=== PATIENT | female | born 1975 | race Caucasian/White ===

== ENCOUNTER 2019-06-25 13:43 | Emergency (ER) | payer MEDICAID ==
[~2019-06-25] VITALS: Ht 152.4 cm; Wt 80.5 kg
[2019-06-25 13:49] VITALS: TEMP 98.4
[2019-06-25] MEDS ORDERED: TYLENOL 325MG325 MG PO (13:53)
[2019-06-25] MEDS ORDERED: FLEXERIL 1010 MG/TAB PO (16:26)
[2019-06-25] MEDS ORDERED: NORCO 325 MG-51 TAB PO (16:26)
[2019-06-25] MEDS ORDERED: ZESTORETIC 25 M1 TAB PO (17:34)
[2019-06-25 17:42] VITALS: BP 197/117; PULSE 98
== END 2019-06-25 17:43 | disposition home or self-care (01) ==
LOC: COL.ER 13:43
DX: M79.671 Pain in right foot (principal)

== ENCOUNTER → 2020-06-29 | Outpatient (CLI) | payer MEDICAID ==
[~2020-06-29] MED LIST: FLEXERIL 1010 MG/TAB PO; NORCO 325 MG-51 TAB PO; TYLENOL 325MG325 MG PO; ZESTORETIC 25 M1 TAB PO
== END ==
LOC: COL.RAD 09:16
DX: M79.661 Pain in right lower leg (principal); Z98.1 Arthrodesis status
CPT/HCPCS: A9503

== ENCOUNTER 2020-07-02 15:43 | Inpatient (IN) | payer MEDICAID ==
[~2020-07-02] VITALS: Ht 152.4 cm; Wt 102.6 kg
[2020-08-19] VITALS (11 sets, daily range): BP systolic 104–132; BP diastolic 55–72; PULSE 71–85; TEMP 97.6–98.2
--- NOTE | 2020-08-19 07:33 | NUR ---
VS ON ADMISSION WAS, [id number]% SCRUB COMPLETED TO RIGHT LEG TO THIGH. BISI HOSE TO THIGH APPLIED TO LEFT LEG PRE-OP. UNABLE TO START IV, ANESTHESIA TO START IV IN PACU.
[2020-08-19] MEDS ORDERED: ONE-A-DAY ESSE1 EACH PO (07:38)
[2020-08-19] MEDS ORDERED: CELEXA10 MG PO (07:39)
[2020-08-19] MEDS ORDERED: NEXIUM 24HR20 M1 PO (07:40)
[2020-08-19] MEDS ORDERED: KLONOPIN2 MG PO (07:41)
[2020-08-19] MEDS ORDERED: CYANOCOBAL1000 MCG/1 IM (07:44)
[2020-08-19] MEDS ORDERED: WELLBUTRIN 100100 MG PO (07:45)
[2020-08-19] MEDS ORDERED: PRINZIDE 12.5 M1 TA1 PO (10:30)
[2020-08-19] MEDS ORDERED: WELLBUTRIN SR100 M1 PO (11:26)
[2020-08-19] MEDS ORDERED: PRILOSEC 20MG20 MG PO (11:27)
--- NOTE | 2020-08-19 11:29 | NUR ---
PT TO ROOM 348 PER BED WITH REPORT FROM JULISSA BOX PACU @5702. PT A/O X3. LUNGS COARSE ALL OQUENDO. ENCOURAGED CDB. DRESSING TO LLE CDI WITH OCCLUSIVE BALA WRAP OVER STUMP. HEMOVAC DRAIN INPLACE WITH MINIMAL DRAINAGE.
--- NOTE | 2020-08-19 11:32 | NUR ---
IV TO PUMP. SCD ON NON OPERATIVE SIDE. PT TAKING PO WELL.
--- NOTE | 2020-08-19 17:50 | NUR ---
PT HAS BEEN UP TO VOID AND RETURNED TO BED. WITH MINIMAL ASSIST.
--- NOTE | 2020-08-19 21:57 | NUR ---
RESUMED CARE FROM CHARU SILVEIRA. PATIENT COMPLAINING OF SPASMS IN HER LEG AND REQUESTED HER IV SITE BE MOVED. CALLED DR JOLLY. ORDERS FOR IV BENADRYL, FLEXERIL, AND DC FLUIDS. PATIENT UP IN WHEELCHAIR. PATIENT HAS NO OTHER NEEDS AT THIS TIME.
--- NOTE | 2020-08-20 01:00 | NUR ---
Patient's IV came out. Called [facility] to put in a new one. Said she will put one in this morning.
[2020-08-20 04:31] VITALS: BP 126/84; PULSE 73; TEMP 98.1
--- NOTE | 2020-08-20 06:19 | NUR ---
New IV placed in the right forearm.
[2020-08-20 07:55] LABS: HEMOGLOBIN 13.7 g/dl (12.5-16.0); MEAN CELL VOLUME 91 fl (80.0-100.0); MEAN CORPUSCULAR HEMOGLOBIN 30 pg (27.0-31.0); MEAN CORPUSCULAR HGB CONC 33 g/dl (33.0-37.0); MEAN PLATELET VOLUME 10.4 fl (7.4-10.4); PLATELET COUNT 346 K/mm3 (130-400); RED BLOOD COUNT 4.53 M/mm3 (4.10-5.30); REDCELL DISTRIBUTION WIDTH-CV 13.6 % (11.5-14.5)
[2020-08-20 08:00] VITALS: BP 135/57; PULSE 87; TEMP 97.8
[2020-08-20 11:15] VITALS: BP 127/71; PULSE 91; TEMP 97.8
--- NOTE | 2020-08-20 11:45 | NUR ---
SUMA met with the patient to discuss discharge plan. The patient lives in [place] with a roommate, Christine. She reports needing some assistance with ADLs prior to hospitalization and has crutches, a knee scooter, and a walker. She states that her crutches are broken and the walker she has is too big for her. The patient states that she has two personal care attendants from [address] [place] [address]. She will be getting a third one soon. Christine and Christine's daughter are her personal care attendants. They help her with bathing, dressing, and whatever she may need. The patient also has a certified service dog, Maura. Maura is a lab/dachshund mix. The patient states that she has Maura for her anxiety and panic attacks. The patient's PCP is Dr. Kenisha Cook and she receives her medications from [facility]. The patient does not have a DPOA-HC, but she was interested in completing one. SUMA provided the form. The patient designated her daughter, Amanda Soto (ph#[phone]). SUMA and EMERGENCY MEDICINE MEDICAL DIRECTORJefferson, witnessed the patient's signature. The patient was provided with the original and some copies. SUMA placed a copy in the patient's chart. Amanda lives in [place], [place]. The patient had a BKA yesterday. SUMA discussed post-acute rehab and the options. The patient has Medicaid [facility]. The patient is interested in rehab, but would like for her service dog to come with her to the rehab. SUMA informed the patient that with COVID-19, that this would most likely not be possible. The patient verbalized understanding. The patient would still like for SUMA to ask the facilities if they would take a service animal, if not, she is still okay going to rehab without Maura. The patient states that a friend is watching Maura now. SUMA also informed patient that due to her insurance, SUMA would need to send multiple referrals. The patient was agreeable to this. SUMA consulted IPR Director, Aliza. SUMA attempted to contact Angella at [facility] to give her the referral. SUMA left her message. SUMA contacted and faxed a referral to [facility] and [facility]. Awaiting screens.
--- NOTE | 2020-08-20 13:47 | NUR ---
Ira, at [facility], reports that due to their bed situation and the patient's insurance, they would not have a bed available until sometime next week. Ira reports that the patient is already functioning quite well and she believes by the time they did have a bed, the patient would be too functional. Morgan, at [facility], reports that they have financially declined the patient.
--- NOTE | 2020-08-20 15:29 | NUR ---
SUMA observed the patient walking 300 feet on crutches with supervision from PT. SUMA then staffed with Josephine from PT. PT is now recommending home with outpatient therapy and would still recommend a wheelchair with elevating leg rests. SUMA met with the patient to update and to discuss going home with outpatient therapy. The patient states that her manager personal, Christine, that she is living with did not put her on her lease. She states that she has to be out of Christine's house in two weeks. She states that she did sign a lease and will have a new apartment that is handicap accessible on 09/14/2020. She states she does not know where she will stay or do until then. She was hopeful to be in rehab until 09/14. SUMA informed her of the possiblity of insurance denying a stay at rehab, due to her being too functional. SUMA discussed the [facility]. The patient reports that she does not like homeless shelters and would not want to go there. The patient states that she will return back home with her roommate, but would like to get a wheelchair and was open to SW sending the script to any [employer] company. SUMA discussed outpatient therapy. The patient states that she lives on the [facility] and was agreeable to getting outpatient therapy at [facility]. SUMA to schedule appointments. SUMA updated the patient's RN and informed her of how the patient's attending will need to sign a script for the wheelchair. SUMA placed the script on the patient's chart. SUMA contacted and faxed the patient's information to Charley at [facility]. SUMA notified her of what the patient will need and how we are awaiting the script.
[2020-08-20 16:18] VITALS: BP 128/63; PULSE 93; TEMP 98
--- NOTE | 2020-08-20 19:00 | NUR ---
PATIENT PROVIDED WITH PRN PAIN AND MUSCLE SPASM MEDICATION DURING THE DAY. PATIENT EDUCATED ON BEING MORE DESCRIPTIVE WITH HER PAIN SO THAT STAFF CAN APPROPRIATELY MEDICATE THE PAIN AND OR SPASMS. PATIENT BKA DRESSING REMAINED CD&I. BKA ELEVATED ON PILLOWS WITH ICE PACK IN PLACE OFF AND ON DURING THE SHIFT. PATIENT UP INDEPENDENTLY IN THE ROOM WITH CRUTCHES. BEDSIDE REPORT GIVEN TO CHARU POLANCO.
[2020-08-20 20:16] VITALS: BP 116/74; PULSE 94; TEMP 97.8
[2020-08-20 23:54] VITALS: BP 121/75; PULSE 91; TEMP 97.9
[2020-08-21 03:16] VITALS: BP 120/69; PULSE 88; TEMP 97.8
--- NOTE | 2020-08-21 04:16 | NUR ---
ALTERNATING NORCO AND OXYCODONE PRN FOR PAIN. FLEXERIL AND KLONIPINE GIVEN BEFORE BEDTIME. PATIENT CONTINUES TO REQUEST MORE PAIN MEDICINE BEFORE SHE IS ABLE TO HAVE MORE. ENSURING LOWER RIGHT EXTREMITY IS ELEVATED WHEN CHECKING ON HER. PATIENT HAS HER HEATED BLANKET AND ICE FOR COMFORT MEASURES TO HELP WITH PAIN.
--- NOTE | 2020-08-21 06:40 | NUR ---
PATIENT HAS BEEN AMBULATING IN ROOM INDEPENDENTLY. PATIENT CALLED AND REPORTED THAT SHE HAD FALLEN WHEN TRYING TO GET BACK INTO BED. WHEN ENTERING THE ROOM PATIENT WAS SITTING ON THE FLOOR NEXT TO THE BED. GAIT BELT WAS USED TO GET PATIENT BACK IN BED WITH THE HELP OF ANOTHER NURSE. NO INJURIES NOTED. AND ELECTRICAL HIGH TENSION TESTER WERE NOTIFIED.
[2020-08-21 07:07] VITALS: BP 115/72; PULSE 95; TEMP 98.6
--- NOTE | 2020-08-21 08:10 | NUR ---
Patient in bed resting. Alert and oriented x 3. Patient states she continues having pain to RLE. Medications given per orders. Dressing to RLE is CDI. Marcelo hose to LLE. Denies further needs at this time.
--- NOTE | 2020-08-21 09:30 | NUR ---
Patient called out to nurses station states she continues having pain to RLE 8/10. Medications given per orders.
--- NOTE | 2020-08-21 10:48 | NUR ---
Initial visit; Patient thanked Histology Assistant for offering God's blessings and for keeping her in Histology Assistant's prayers.
--- NOTE | 2020-08-21 11:22 | NUR ---
Geraldine, at [facility], reports that they are not able to take any new patient's until next Monday/Monday. Aliza, IPR Director, reports that she will decline the patient, due to being too functional and a bed is not available right now.
[2020-08-21 11:45] VITALS: BP 139/94; PULSE 110; TEMP 97.4
--- NOTE | 2020-08-21 12:45 | NUR ---
Angella, at [facility], reports that they have declined the patient due to being too functional.
--- NOTE | 2020-08-21 13:38 | NUR ---
SW contacted [facility] and secured the patient an outpatient OT appointment on , 08/27, at 1100 and PT on Monday, 08/28, at 1015. SW to inform the recovery unit operator of the appointments.
--- NOTE | 2020-08-21 14:18 | NUR ---
The patient's attending has not been up to the hospital yet today to round on the patient and sign script. SUMA contacted Charley at [facility] to follow up about the wheelchair and update on the script. Charley reports that they will try and deliver the wheelchair to the patient's room today.
--- NOTE | 2020-08-21 15:28 | NUR ---
SUMA contacted and updated the patient's attending on the patient's plan. The patient's attending plans to come up and sign the wheelchair script today. Charley, at [facility], reports that they will deliver the wheelchair to the patient's room today.
[2020-08-21 15:34] VITALS: BP 126/78; PULSE 111; TEMP 98.3
--- NOTE | 2020-08-21 16:08 | NUR ---
BAILEE delivered the wheelchair to the patient's room. SW met with the patient to review d/c plan. She is agreeable to the plan of returning home with outpatient therapy.
--- NOTE | 2020-08-21 18:48 | NUR ---
Patient has done well throughout the day. Complains of pain to RLE 8/10 throughout the day, medications given per orders. Patient ambulated with SBA and crutches through the day. Has been up in wheelchair throughout the day. Will report off to bilingual research interviewer.
--- NOTE | 2020-08-21 19:15 | NUR ---
Pt snoring in bed. Report received from day shift nurse stating that patient had fallen earlier today but continues to be independent in room with crutches and will get herself in wheelchair and go out in hallway pushing herself. Has been requesting pain med every 1-1 1/2 hours and is aware med can only be given every 2 hours alternately between Roxicodone and [place].
[2020-08-21 19:30] VITALS: BP 135/60; PULSE 96; TEMP 98
--- NOTE | 2020-08-21 19:30 | NUR ---
Pt. called and stated, "Can someone get me off the floor?". This nurse entered the room to find the pt. by the sink sitting cross legged on the floor in front of the wheel chair. Vitals stable. Pt. assessed for injury, non noted. Pt. was able to scoot over to the bedside and get on lt. knee, from this position with the gait belt and 3 assist we were able to get pt. up into the bed. Pt. denies any pain. Will notify hous lamp shades supervisor and On-call provider.
--- NOTE | 2020-08-21 20:15 | NUR ---
PT REQUESTED AND GIVEN NORCO 7.5/325 1 TAB AND FLEXERIL FOR RIGHT AMPUTEE PAIN RATED 10/10. RLE UP ON 2 PILLOWS AND 1 PILLOW TAKEN OUT AND LEFT WITH ONE. SCD PLACED ON LEFT LE. INT IN R FA FLUSHED AND IS LEAKING AT INSERTION SITE. SLIGHTLY RED AT SITE. BED ALARM APPLIED AFTER PT HAD SLID OUT OF WHEELCHAIR. CALL LIGHT WITHIN REACH.
[2020-08-21 23:45] VITALS: BP 107/78; PULSE 92; TEMP 98
[2020-08-22 03:50] VITALS: BP 130/82; PULSE 92; TEMP 97.9
--- NOTE | 2020-08-22 07:21 | NUR ---
PT SLEPT FOR A LONGER STRETCH AFTER RECEIVING HER KLONIPIN AND TRAMADOL. ICE TO RIGHT STUMP AND ELEVATED ON ONE PILLOW. BED ALARM ON ALL NIGHT. INT DC'D AFTER FLUSHING WAS LEAKING AND RED AT SITE. BANDAID APPLIED OVER SITE. ROXICODONE 10MG GIVEN AT 0541 THIS AM. BALA WRAP INTACT ON RIGHT STUMP. CALL LIGHT IN REACH.
[2020-08-22 07:23] VITALS: BP 118/70; PULSE 98; TEMP 98.1
[2020-08-22 11:43] VITALS: BP 145/83; PULSE 95; TEMP 97.6
[2020-08-22] MEDS ORDERED: FLEXERIL 1010 MG/TAB PO (11:56)
[2020-08-22] MEDS ORDERED: ASPI325T6 PO (11:57)
[2020-08-22] MEDS ORDERED: NORCO 325 MG-7.1 TAB PO (11:57)
[2020-08-22] MEDS ORDERED: ROXICODONE 55 MG/TAB PO (11:58)
[2020-08-22] MEDS ORDERED: NEURONTIN300 MG/CAP PO (11:58)
[2020-08-22] MEDS ORDERED: ZOFRAN 4MG T4 MG/TAB PO (12:00)
--- NOTE | 2020-08-22 13:10 | NUR ---
Patient has done well throughout the day. continues to complain of pain to right stump, medications given throughout the day per orders. Dr. Merino in to change dressing this afternoon. SS saw patient re changing wheelchair because she feels that wheelchair is too big for her; patient to call on monday. Discharge education provided to patient. Educated on dressing changes and follow up appointments. Patient educated on therapy appointments and when to call provider. Educated on all new medications and medication safety. Denies further needs at this time. Patient out by wheelchair.
--- NOTE | 2020-08-22 14:18 | NUR ---
SW was informed that patient stated that her wheelchair was too big. Patient stated that she called [employer] provided that is the specific size needed to assist with her needs. Patient states that she has company number if she has any further problems. Patient discharged. Nothing further
== END 2020-08-22 13:10 | disposition home or self-care (01) | DRG 475 ==
LOC: SURG 07-14 07:30 → INPTSU 08-19 05:05 → SURG 08-19 07:30
PROVIDERS: ADMIT Orthopaedic Surgery
PROC: 0Y6H0Z1 Detachment at Right Lower Leg, High, Open Approach (ICD-10-PCS; principal; 2020-08-19 07:30)
DX: M96.0 Pseudarthrosis after fusion or arthrodesis (principal); T84.038A Mechanical loosening of other internal prosthetic joint, initial encounter; Q79.8 Other congenital malformations of musculoskeletal system; M19.90 Unspecified osteoarthritis, unspecified site; F32.9 Major depressive disorder, single episode, unspecified; K21.9 Gastro-esophageal reflux disease without esophagitis
CPT/HCPCS: J0690; J1200; J2250; J2704; J3010; J7120

== ENCOUNTER 2020-09-20 19:42 | Emergency (ER) | payer MEDICAID ==
[~2020-09-20] VITALS: Ht 152.4 cm; Wt 95.9 kg
[~2020-09-20 19:42] MED LIST changes: +ASPI325T6 PO; +CELEXA10 MG PO; +CYANOCOBAL1000 MCG/1 IM; +KLONOPIN2 MG PO; +NEURONTIN300 MG/CAP PO; +NEXIUM 24HR20 M1 PO; +NORCO 325 MG-7.1 TAB PO; +ONE-A-DAY ESSE1 EACH PO; +PRILOSEC 20MG20 MG PO; +PRINZIDE 12.5 M1 TA1 PO; +ROXICODONE 55 MG/TAB PO; +WELLBUTRIN 100100 MG PO; +WELLBUTRIN SR100 M1 PO; +ZOFRAN 4MG T4 MG/TAB PO
[2020-09-20 19:43] VITALS: TEMP 98.5
[2020-09-20 21:01] VITALS: BP 100/92; PULSE 90
== END 2020-09-20 21:25 | disposition home or self-care (01) ==
LOC: COL.ER 19:42
DX: M79.661 Pain in right lower leg (principal)
CPT/HCPCS: J1170

== ENCOUNTER 2021-01-15 15:00 | Outpatient (RCR) | payer MEDICAID | END 2021-01-20 14:26 | disposition home or self-care (01) | LOC: WSC 15:00 | DX: Z89.511 Acquired absence of right leg below knee (principal); Z91.81 History of falling ==